=== PATIENT | male | born 1965 | race Caucasian/White ===

== ENCOUNTER → 2016-10-18 | Outpatient (CLI) | payer OTHER ==
--- NOTE | 2016-10-18 10:48 | DIAGNOSTIC IMAGING REPORT ---
RIGHT SHOULDER MIN 2 VIEWS CLINICAL HISTORY: RIGHT BICEPS TENDON RUPTURE Right pain. Trauma. COMPARISON: None. DISCUSSION: Moderate degenerative change of the acromioclavicular and glenohumeral joints. Mild osteophytic reaction lateral aspect acromion. No evidence of fracture or dislocation. There is no evidence for soft tissue swelling. IMPRESSION: Moderate degenerative change. No acute bony abnormality. Electronically signed by: Homero Crowell M.D. 10/18/2016 10:47 AM Dictated Date/Time: 10/18/2016 10:38 AM
== END | disposition home or self-care (01) ==
LOC: C.RDSM 10:27
PROVIDERS: ATTEND Family Medicine
DX: S46.111A Strain of muscle, fascia and tendon of long head of biceps, right arm, initial encounter (principal); X58.XXXA Exposure to other specified factors, initial encounter

== ENCOUNTER → 2016-10-19 | Outpatient (CLI) | payer OTHER ==
--- NOTE | 2016-10-19 09:32 | DIAGNOSTIC IMAGING REPORT ---
MRI right shoulder and upper arm RIGHT UPPER EXT NONJOINT WITHOUT CLINICAL HISTORY: RIGHT BICEP TENDON INJURY Right pain TECHNIQUE: Multiaxial MRI acquisition COMPARISON STUDY: None FINDINGS: Signal characteristics the osseous structures are in general unremarkable. Several degenerative subchondral cysts are identified deep to the supraspinatus tendon insertion lateral aspect humeral head. rotator cuff demonstrates moderate supraspinatus tendinitis. There is a trace amount of reactive fluid surrounding these.. There is moderate hypertrophic change acromioclavicular joint creating minimal impingement. Infraspinatus tendon is unremarkable. Subscapularis tendon is intact. There is thinning with a partial tear and internal matrix deterioration of the biceps tendon. A full-thickness biceps tendon tear with retraction is not identified. Structures the glenoid labrum are unremarkable. IMPRESSION: 1. High-grade partial thickness tear with matrix deterioration of the biceps tendon. 2. No evidence for musculotendinous retraction. 3. Tendinopathy of the supraspinatus tendon 4. Moderate hypertrophic change acromioclavicular joint creating mild impingement. Electronically signed by: Homero Crowell M.D. 10/19/2016 9:31 AM Dictated Date/Time: 10/19/2016 9:17 AM
== END | disposition home or self-care (01) ==
LOC: C.MRIBC 07:38
PROVIDERS: ATTEND Family Medicine
DX: S46.111A Strain of muscle, fascia and tendon of long head of biceps, right arm, initial encounter (principal); X58.XXXA Exposure to other specified factors, initial encounter; M75.91 Shoulder lesion, unspecified, right shoulder